=== PATIENT | male | born 1995 | race Caucasian/White ===

== ENCOUNTER 2017-01-03 13:59 | Emergency (ER) | payer BC ==
[~2017-01-03 13:59] MED LIST: Cephalexin 500 MG Cap PO ONE
[2017-01-03 14:03] VITALS: BP 134/71
--- NOTE | 2017-01-03 14:09 | EDM.PDOC ---
ED HPI GENERAL MEDICAL PROBLEM - General Chief Complaint: General Stated Complaint: questionable infection to leg Time Seen by Provider: 01/03/17 14:00 Source of Information: Reports: Patient History Limitations: Reports: No limitations - History of Present Illness INITIAL COMMENTS - FREE TEXT/NARRATIVE: History and physical: History of present illness: [Patient comes to the emergency room complaining of left lower leg pain. Has been present for the past 4 days. He denies any known injury but he works as a [employer] and crawls around on the ground and over and around equipment. On he noticed some discomfort to his anterior lower leg. He noticed a small area of erythema. This continued to grow over the past several days and become more warm and painful. He's taken some ibuprofen from time to time which provides minimal improvement in pain. He felt feverish at times but has not checked his temperature. He denies chest pain, shortness of breath and difficulty breathing. He's had no abdominal pain, nausea, vomiting. His appetite has been good. No difficulty urinating. He has no other complaints or concerns today.] Review of Systems: As per history of present illness and below otherwise all systems reviewed and negative. Past medical history: As per history of present illness and as reviewed below otherwise noncontributory. Surgical history: As per history of present illness and is reviewed below other lyn noncontributory. Social history: No reported history of drug or alcohol abuse. Family history: As per history of present illness and is reviewed below otherwise noncontributory. Physical exam: HEENT: Atraumatic, normocephalic. Conjunctiva clear. mucous membranes moist, throat clear. Lungs: Clear to auscultation, breath sounds equal bilaterally, chest nontender. Heart: S1-S2, regular, negative for clicks, rubs. Abdomen: Overweight Soft, nondistended, nontender. Negative for masses , guarding or rebound. Pelvis: Stable, nontender. Genitourinary: Deferred. Rectal: Deferred. Extremities: 14.5 cm wide by 20.25 cm long area of erythema to the anterior lower left leg. Has a central area of increased dryness but no open wound or lesion. negative for cords or calf pain. Neurovascular unremarkable. No cyanosis or edema to the foot. Neuro: Awake, alert, oriented. Cranial nerves II through XII unremarkable. Motor and sensory unremarkable throughout. Exam nonfocal. Diagnostics: [CBC, CMP, left tib-fib x-ray] Therapeutics: [Rocephin 1 g IM] Impression: [Left lower leg cellulitis] Plan: [White blood cell count 5.6. CMP is within normal limits. Patient declines any narcotics or prescription pain medication. Rocephin 1 g given IM in the ER. Was given Rx for cephalexin 500 mg #36 sig 2 by mouth twice a day zero refills. Patient is advised to take until all the medications taken. Followup with PCP on Wednesday morning. Tylenol or ibuprofen as needed for discomfort. He is in agreement with today's plan. All of his questions are answered and concerns are addressed.] Definitive disposition and diagnosis is appropriate pending reevaluation and review of above. He will with me in and is irregularly he is this is a Left Leg Pain Score (Numeric/FACES): 3 - Related Data Allergies Allergy/AdvReac Type Severity Reaction Status Date / Time No Known Allergies Allergy Verified 01/03/17 14:03 Home Meds: Home Meds . [No Known Home Meds] 10/23/14 [History] ED ROS GENERAL - Review of Systems Review Of Systems: ROS reveals no pertinent complaints other than HPI. ED EXAM, GENERAL - Physical Exam Exam: Not Obtained Course - Vital Signs Last Recorded V/S: Last Vital Signs Temp 98.0 F 01/03/17 13:59 Pulse 68 01/03/17 13:59 Resp 16 01/03/17 13:59 BP 134/71 01/03/17 13:59 Pulse Ox 97 01/03/17 13:59 - Orders/Labs/Meds Orders: Active Orders 24 hr Category Date Time Status Tibia Fibula Lt [CR] Stat Exams 01/03/17 14:16 Taken Labs: Laboratory Tests 01/03/17 01/03/17 Range/Units 14:20 14:20 WBC 5.6 (5.0-10.0) 10^3/uL RBC 5.09 (4.50-6.00) 10^6/uL Hgb 14.5 (14.0-18.0) g/dL Hct 43.1 (40.0-54.0) % MCV 84.7 (82.0-94.0) fL MCH 28.5 (27.0-32.0) pg MCHC 33.6 (33.0-38.0) g/dL RDW Coeff of Jodie 13.4 (11.0-15.0) % Plt Count 190 (150-400) 10^3/uL Neut % (Auto) 59.3 (35-85) % Lymph % (Auto) 27.2 (10-55) % [place] % (Auto) 12.6 (0-16) % Eos % (Auto) 0.5 (0-5) % Baso % (Auto) 0.4 (0-3) % Neut # (Auto) 3.29 (1.80-7.00) 10^3/uL Lymph # (Auto) 1.51 (1.00-4.80) 10^3/uL [place] # (Auto) 0.70 (0.00-0.80) 10^3/uL Eos # (Auto) 0.03 (0.00-0.45) 10^3/uL Baso # (Auto) 0.02 10^3/uL Sodium 140 (136-145) mEq/L Potassium 4.2 (3.5-5.0) mEq/L Chloride 102 (98-106) mEq/L Carbon Dioxide 28 (21-32) mmol/L BUN 18 (7-18) mg/dL Creatinine 1.2 (0.7-1.3) mg/dL Est Cr Clr Drug Dosing 103.71 mL/min Estimated GFR (MDRD) > 60 (>=60) mL/min Glucose 95 (75-99) mg/dL Calcium 8.6 (8.4-10.1) mg/dL Total Bilirubin 0.3 (0.0-1.0) mg/dL AST 21 (15-37) U/L ALT 27 (12-78) U/L Alkaline Phosphatase 61 (46-116) U/L Total Protein 7.1 (6.4-8.2) g/dL Albumin 3.1 L (3.4-5.0) g/dL Meds: Medications Discontinued Medications Generic Name Dose Route Start Last Admin Trade Name Freq PRN Reason Stop Dose Admin Ceftriaxone Sodium 1 gm 01/03/17 14:15 01/03/17 14:50 Rocephin IM 01/03/17 14:16 1 gm ONETIME ONE Administration Cephalexin 1 packet 01/03/17 14:46 04/16/17 14:50 Take Home: Cephalexin 500 Mg, 4 Cap Pack PO 01/03/17 14:47 1 packet ONETIME ONE Administration Lidocaine HCl Confirm 01/03/17 14:40 01/03/17 14:51 Xylocaine 1% Administered 01/03/17 14:41 2.1 ml Dose Administration 20 ml .ROUTE .STK-MED ONE Departure - Departure Time of Disposition: 15:00 Disposition: Home, Self-Care 01 Condition: good Clinical Impression: Cellulitis of left lower leg Forms: ED Department Discharge Additional Instructions: The following information is given to patients seen in the emergency department who are being discharged home. This information is to outline your options for follow-up care and provides all patient seen in our emergency department with a follow-up referral. The need for follow-up, as well as the timing and circumstances, are variable depending upon the specifics of each emergency department visit. If you don't have a primary care physician on staff, we will provide you with a referral. We always advise to contact your personal physician following an emergency department visit to inform them of the circumstances of the visit and for follow-up with them and/or the need for any referrals to a consulting specialist. The emergency department will also refer you to a specialist when appropriate. This referral assures that you have the opportunity for follow-up care with a specialist. All of these measures are taken in an effort to provide you with optimal care, which includes your follow-up. Under all circumstances we always encourage you to contact your private physician who remains a resource for coordinating your care. When calling for follow-up care, please make the office aware that this follow-up is from your recent emergency room visit. If for any reason you are refused follow-up please contact the [facility] emergency department at and ask to speak to the emergency department nurse. [facility] [address] [address] Followup with Katarina in 48-72 hours for reevaluation. Take ibuprofen and Tylenol as needed for fever and discomfort. Take antibiotics as prescribed. Return to ER as needed as discussed. - My Orders Last 24 Hours: My Active Orders 01/03/17 14:16 Tibia Fibula Lt [CR] Stat - Assessment/Plan Last 24 Hours: My Active Orders 01/03/17 14:16 Tibia Fibula Lt [CR] Stat
[2017-01-03] MEDS ORDERED: cefTRIAXone 1 GM Vial IM ONE (14:15)
[2017-01-03 14:39] LABS: CHLORIDE,CL 102 mEq/L (98-106); SODIUM,NA 140 mEq/L (136-145)
[2017-01-03] MEDS ORDERED: Lidocaine 1% 20 ML MDV ONE (14:40)
[2017-01-03] MEDS ORDERED: Take Home: Cephalexin 500 MG Cap, 4 Cap Pack PO ONE (14:46)
== END 2017-01-03 15:10 | disposition home or self-care (01) ==
LOC: CC.ED 13:59
DX: L03.116 Cellulitis of left lower limb (principal)
CPT/HCPCS: 36415; 73590; 80053; 85025; 96372; 99283; A9270; J0696